=== PATIENT | female | born 1950 | race Caucasian/White ===

== ENCOUNTER 2017-07-17 19:19 | Emergency (ER) | payer MEDICARE ==
[~2017-07-17] VITALS: Ht 157.5 cm; Wt 63.5 kg
[2017-07-17] MEDS ORDERED: SODIUM CHLORIDE 0.9% 1000ML 1,000 ML IV STA ×2 (19:22→22:32)
[2017-07-17 19:39] LABS: BASOPHILS % 0.4 % (0.0-1.0); EOSINOPHILS % 0.4 % (0.0-6.0); HEMATOCRIT 37.8 % (34.2-44.1); HEMOGLOBIN 12.6 g/dL (12.0-16.0); LYMPHOCYTES # (AUTO) 0.6 (1.0-3.2); LYMPHOCYTES % 23.4 % (18.0-39.1); MEAN CORPUSCULAR HEMOGLOBIN 31.8 pg (28-32); MEAN CORPUSCULAR HGB CONC 33.3 g/dL (31-35); MEAN CORPUSCULAR VOLUME 95.5 fL (81-99); MONOCYTES # (AUTO) 0.2 (0.2-0.8); MONOCYTES % 6.7 % (4.4-11.3); NEUTROPHILS # (AUTO) 1.7 (2.1-6.9); NEUTROPHILS % 69.1 % (38.7-80.0); PLATELET COUNT 225 x10e3/uL (140-360); RED BLOOD COUNT 3.96 x10e6/uL (3.6-5.1); RED CELL DISTRIBUTION WIDTH 13.9 % (11.7-14.4)
[2017-07-17 19:46] LABS: INR 1.01; PROTHROMBIN TIME 12.5 seconds (11.9-14.5)
[2017-07-17 19:47] LABS: PARTIAL THROMBOPLASTIN TIME 29.4 seconds (23.8-35.5)
[2017-07-17 19:55] LABS: ALANINE AMINOTRANSFERASE 24 IU/L (0-55); ALBUMIN 3.8 g/dL (3.5-5.0); ALBUMIN/GLOBULIN RATIO 1.2 (0.8-2.0); ALKALINE PHOSPHATASE 80 IU/L (40-150); ANION GAP 12.9 mmol/L (8-16); BLOOD UREA NITROGEN 11 mg/dL (7-26); BUN/CREATININE RATIO 13 (6-25); CARBON DIOXIDE 26 mmol/L (22-29); CHLORIDE 101 mmol/L (98-107); CREATINE KINASE 49 IU/L (29-168); CREATININE, SERUM 0.83 mg/dL (0.57-1.11); EST GLOMERULAR FILTRATION RATE > 60 ML/MIN (60-); GLUCOSE 103 mg/dL (74-118); POTASSIUM 3.9 mmol/L (3.5-5.1); SODIUM 136 mmol/L (136-145)
--- NOTE | 2017-07-17 20:28 | Diagnostic Imaging Report ---
EXAM: CHEST 2 VIEWS, PA and lateral INDICATION: High heart rate COMPARISON: None FINDINGS: LINES/TUBES: None LUNGS: No consolidations or edema. PLEURA: No effusions or pneumothorax. HEART AND MEDIASTINUM: Normal size and contour. BONES AND SOFT TISSUES: No acute findings. Calcified breast implants bilaterally. IMPRESSION: No acute thoracic abnormality. Signed by: Dr. Aurelia Mcmillan M.D. on 07/17/2017 8:25 PM
[2017-07-17 21:17] LABS: B-TYPE NATRIURETIC PEPTIDE2 < 10.0 pg/mL (0-100)
[2017-07-17 21:44] LABS: INFLUENZAE A&B ANTIGEN (RAPID) NEGATIVE (NEGATIVE); STREPTOCOCCUS GRP A ANTIGEN POSITIVE (NEGATIVE)
[2017-07-17 22:13] LABS: BILIRUBIN,URINE NEGATIVE (NEGATIVE); CLARITY,URINE CLEAR (CLEAR); COLOR,URINE YELLOW (YELLOW); KETONES,URINE NEGATIVE (NEGATIVE); LEUKOCYTE ESTERASE ,URINE TRACE (NEGATIVE); NITRITE,URINE NEGATIVE (NEGATIVE); PROTEIN,URINE DIPSTICK NEGATIVE (NEGATIVE); URINE UROBILINOGEN 0.2 mg/dL (0.2 - 1)
[2017-07-17] MEDS ORDERED: CEFTRIAXONE SOD 1 GM VIAL IV STA (22:31)
[2017-07-17 22:37] LABS: EPITHELIAL CELLS,URINE FEW /LPF; RBC,URINE 0-5 /HPF (0-5)
[2017-07-17] MEDS ORDERED: SODIUM CHLORIDE 0.9% 1000ML 1,000 ML ONE (22:39)
[2017-07-17] MEDS ORDERED: ACETAMINOPHEN 325 MG TAB ONE (22:40)
[2017-07-17] MEDS ORDERED: ACETAMINOPHEN 325 MG TAB PO ONE (22:45)
[2017-07-17 22:58] VITALS: BP 147/95
== END 2017-07-17 23:36 | disposition home or self-care (01) ==
LOC: ER 19:19
DX: R50.9 Fever, unspecified (principal); R05 Cough; J02.0 Streptococcal pharyngitis; J20.9 Acute bronchitis, unspecified; D72.819 Decreased white blood cell count, unspecified
CPT/HCPCS: 36415; 71046; 80053; 81001; 82550; 82553; 83518; 83605; 83880; 84443; 84484; 85025; 85379; 85610; 85730; 87040; 87086; 87400; 93005; 99284; J0696; J7030